=== PATIENT | male | born 1995 | race African-American/Black ===

== ENCOUNTER 2021-07-19 08:49 | Emergency (ER) | payer BC | END 2021-07-19 10:08 | disposition home or self-care (01) | LOC: BURERS 08:49 | DX: G56.03 Carpal tunnel syndrome, bilateral upper limbs (principal); F17.210 Nicotine dependence, cigarettes, uncomplicated; F17.290 Nicotine dependence, other tobacco product, uncomplicated | CPT/HCPCS: 99283 ==